=== PATIENT | male | born 1950 | race Caucasian/White ===

== ENCOUNTER 2016-12-24 04:45 | Inpatient (IN) | payer MEDICARE ==
[~2016-12-24] VITALS: Ht 177.8 cm; Wt 103.6 kg
[2016-12-24] VITALS (8 sets, daily range): BP systolic 111–175; BP diastolic 56–88
[~2016-12-24 04:45] MED LIST: ACTOS45 MG PO; ALTACE10 MG PO; CARVEDILOL25 MG PO; FERROUS SULFAT325 MG PO; GLIPIZIDE10 MG PO; HYDROCHLOROTHIA25 MG PO; IMDUR SA60 M1 PO; KCL PO; LASIX20 MG PO; LIPITOR20 MG PO; NIASPAN1000 MG PO; PERCOCET 325 MG1 TA2 PO; PLAVIX75 MG PO
[2016-12-24] MEDS ORDERED: PRINIVIL10 MG PO (05:04)
[2016-12-24 05:21] LABS: HEMATOCRIT 41.7 % (42.0-52.0); HEMOGLOBIN 13.8 g/dl (14.0-18.0); MEAN CELL VOLUME 95.4 fl (80.0-94.0); MEAN CORPUSCULAR HGB 31.6 pg (27.0-31.0); MEAN CORPUSCULAR HGB CONC 33.1 g/dl (33.0-37.0); PLATELET COUNT AUTOMATED 158 10*3/uL (130-400); RED BLOOD COUNT 4.37 10*6/uL (4.50-5.90); RED CELL DISTRI WIDTH 13.2 % (0-14.5)
[2016-12-24 05:37] LABS: ALBUMIN 3.5 gm/dl (3.1-4.5); ALKALINE PHOSPHATASE 161 U/L (45-117); BILIRUBIN, TOTAL 0.6 mg/dl (0.2-1.0); BUN 18 mg/dl (7-24); CARBON DIOXIDE 24 mmol/L (21-32); CHLORIDE 105 mmol/L (98-107); CKMB 0.9 ng/ml (0.5-3.6); EST GLOM FILT AFRICAN AMERICAN > 60 ml/min; GLUCOSE 105 mg/dL (65-99); POTASSIUM 4.3 mmol/L (3.5-5.1); SGOT/AST 10 IU/L (3-35); SGPT/ALT 15 U/L (12-78); SODIUM 140 mmol/L (136-145); TOTAL PROTEIN 6.9 gm/dL (6.4-8.2); TROPONIN I 0.016 ng/ml (<0.045)
[2016-12-24 05:41] LABS: BASOPHIL # 0.1 10*3/uL (0-0.1); BASOPHILS 1 % (0-1); EOSINOPHIL # 2.4 10*3/uL (0-0.4); EOSINOPHILS 27 % (1-4); LYMPHOCYTE # 0.6 10*3/uL (1.3-4.4); MONOCYTE # 0.5 10*3/uL (0.1-1.0); NEUTROPHIL # 5.4 10*3/uL (2.3-7.9); NEUTROPHILS 60 % (47-73); PLATELET SUFFICIENCY NORMAL (NORMAL); TOTAL CELLS COUNTED 100 #CELLS
[2016-12-24 06:44] LABS: ABG BASE EXCESS -0.8 mmol/L (-2.0-2.0); ABG HCO3 23.7 mmol/l (22-26); ABG TEMPERATURE 97.9 F (98.0-99.0); ARTERIAL BLOOD GAS PH 7.389 (7.35-7.45)
[2016-12-25] VITALS: BP 115/56
[2016-12-25 04:00] VITALS: BP 103/55
[2016-12-25 06:22] LABS: BASO % 0.1 % (0.0-1.0); EOS % 0.1 % (1.0-4.0); HEMATOCRIT 39.3 % (42.0-52.0); HEMOGLOBIN 13.2 g/dl (14.0-18.0); IG # 0.1 10*3/uL (0.0-0.1); LYMPH # 0.9 10*3/uL (1.3-4.4); LYMPH % 7.9 % (27.0-41.0); MEAN CELL VOLUME 95.6 fl (80.0-94.0); MEAN CORPUSCULAR HGB 32.1 pg (27.0-31.0); MEAN CORPUSCULAR HGB CONC 33.6 g/dl (33.0-37.0); MEAN PLATELET VOLUME 10.4 fl (9.6-12.3); MONO # 0.3 10*3/uL (0.1-1.0); MONO % 2.9 % (3.0-9.0); NEUT # 10.2 10*3/uL (2.3-7.9); NEUT % 88.3 % (47.0-73.0); PLATELET COUNT AUTOMATED 157 10*3/uL (130-400); RED BLOOD COUNT 4.11 10*6/uL (4.50-5.90); RED CELL DISTRI WIDTH 13.1 % (0-14.5); WHITE BLOOD COUNT 11.6 10*3/uL (4.8-10.8)
[2016-12-25 06:44] LABS: ALBUMIN 3.2 gm/dl (3.1-4.5); BILIRUBIN, TOTAL 0.4 mg/dl (0.2-1.0); FREE T4 1.23 ng/dl (0.76-1.46); MAGNESIUM 2.3 mg/dL (1.5-2.1); PHOSPHOROUS 4.2 mg/dL (2.5-4.9); POTASSIUM 4.6 mmol/L (3.5-5.1); TOTAL PROTEIN 6.7 gm/dL (6.4-8.2)
[2016-12-25 06:46] LABS: INTERNATIONAL NORM RATIO 1.1 (2.0-3.5)
[2016-12-25 06:49] LABS: THYROID STIM HORMONE (HS) 0.41 uIU/ml (0.358-4.75)
[2016-12-25 07:35] LABS: HEMOGLOBIN A1c 6.4 % (4.8-5.6)
[2016-12-25 07:58] LABS: VITAMIN D, 25-HYDROXY 43.9 ng/mL (30-100)
[2016-12-25 07:59] LABS: FOLIC ACID 4.73 ng/mL (>5.38)
[2016-12-25 08:00] VITALS: BP 136/61
[2016-12-25 12:00] VITALS: BP 128/63
[2016-12-25 16:00] VITALS: BP 147/65
[2016-12-25 20:00] VITALS: BP 146/68
[2016-12-26] VITALS: BP 130/62
[2016-12-26 06:18] LABS: BASO % 0.1 % (0.0-1.0); HEMATOCRIT 36.9 % (42.0-52.0); HEMOGLOBIN 12.5 g/dl (14.0-18.0); IG # 0.1 10*3/uL (0.0-0.1); LYMPH # 0.9 10*3/uL (1.3-4.4); LYMPH % 7.2 % (27.0-41.0); MEAN CELL VOLUME 94.6 fl (80.0-94.0); MEAN CORPUSCULAR HGB 32.1 pg (27.0-31.0); MEAN CORPUSCULAR HGB CONC 33.9 g/dl (33.0-37.0); MEAN PLATELET VOLUME 10.6 fl (9.6-12.3); MONO # 0.3 10*3/uL (0.1-1.0); MONO % 2.7 % (3.0-9.0); NEUT # 10.5 10*3/uL (2.3-7.9); NEUT % 89.2 % (47.0-73.0); PLATELET COUNT AUTOMATED 136 10*3/uL (130-400); RED CELL DISTRI WIDTH 13.2 % (0-14.5); WHITE BLOOD COUNT 11.7 10*3/uL (4.8-10.8)
[2016-12-26 06:49] LABS: ALKALINE PHOSPHATASE 131 U/L (45-117); BILIRUBIN, TOTAL 0.3 mg/dl (0.2-1.0); BUN 29 mg/dl (7-24); CARBON DIOXIDE 23 mmol/L (21-32); CHLORIDE 107 mmol/L (98-107); EST GLOM FILT AFRICAN AMERICAN > 60 ml/min; GLUCOSE 250 mg/dL (65-99); POTASSIUM 4.8 mmol/L (3.5-5.1); SGOT/AST 12 IU/L (3-35); SGPT/ALT 17 U/L (12-78); SODIUM 140 mmol/L (136-145); TOTAL PROTEIN 6.4 gm/dL (6.4-8.2)
[2016-12-26 08:00] VITALS: BP 178/76
[2016-12-26] MEDS ORDERED: PREDNISONE10 MG PO (09:05)
[2016-12-26] MEDS ORDERED: LEVAQUIN500 M2 PO (09:05)
[2016-12-26] MEDS ORDERED: DUONEB 3 MG/3 ML3 M1 INH (09:40)
== END 2016-12-26 11:05 | disposition home or self-care (01) | DRG 190 ==
LOC: ED 04:45 → EDHOLD 06:00 → 5E 06:00
PROVIDERS: Emergency Medicine Emergency Medical Services; Internal Medicine
DX: J44.0 Chronic obstructive pulmonary disease with (acute) lower respiratory infection (principal); J18.9 Pneumonia, unspecified organism; E44.0 Moderate protein-calorie malnutrition; J45.901 Unspecified asthma with (acute) exacerbation; J44.1 Chronic obstructive pulmonary disease with (acute) exacerbation; I25.10 Atherosclerotic heart disease of native coronary artery without angina pectoris; D64.9 Anemia, unspecified; I10 Essential (primary) hypertension; E78.5 Hyperlipidemia, unspecified; E11.40 Type 2 diabetes mellitus with diabetic neuropathy, unspecified; Z87.891 Personal history of nicotine dependence; Z82.3 Family history of stroke; Z82.49 Family history of ischemic heart disease and other diseases of the circulatory system; Z85.89 Personal history of malignant neoplasm of other organs and systems; Z72.89 Other problems related to lifestyle; Z79.899 Other long term (current) drug therapy

== ENCOUNTER 2017-01-11 15:27 | Inpatient (IN) | payer MEDICARE ==
[2017-01-11] VITALS (10 sets, daily range): BP systolic 112–140; BP diastolic 58–83
[~2017-01-11] VITALS: Ht 177.8 cm; Wt 102.1 kg
[~2017-01-11 15:27] MED LIST changes: +DUONEB 3 MG/3 ML3 M1 INH; -GLIPIZIDE10 MG PO; +GLIPIZIDE5 MG PO; +LEVAQUIN500 M2 PO; -LIPITOR20 MG PO; +LIPITOR40 MG PO; +PREDNISONE10 MG PO; +PRINIVIL5 M1 PO
[2017-01-11 18:37] LABS: BASO % 0.3 % (0.0-1.0); EOS # 0.5 10*3/uL (0.0-0.4); EOS % 5.4 % (1.0-4.0); HEMOGLOBIN 12.4 g/dl (14.0-18.0); LYMPH # 1.3 10*3/uL (1.3-4.4); LYMPH % 14.2 % (27.0-41.0); MEAN CELL VOLUME 96.9 fl (80.0-94.0); MEAN CORPUSCULAR HGB 31.6 pg (27.0-31.0); MEAN CORPUSCULAR HGB CONC 32.6 g/dl (33.0-37.0); MEAN PLATELET VOLUME 9.9 fl (9.6-12.3); MONO # 0.6 10*3/uL (0.1-1.0); MONO % 5.9 % (3.0-9.0); NEUT # 6.8 10*3/uL (2.3-7.9); NEUT % 73.8 % (47.0-73.0); PLATELET COUNT AUTOMATED 110 10*3/uL (130-400); RED BLOOD COUNT 3.92 10*6/uL (4.50-5.90); RED CELL DISTRI WIDTH 13.9 % (0-14.5); WHITE BLOOD COUNT 9.3 10*3/uL (4.8-10.8)
[2017-01-11 18:55] LABS: ALKALINE PHOSPHATASE 98 U/L (45-117); BILIRUBIN, TOTAL 0.7 mg/dl (0.2-1.0); BUN 17 mg/dl (7-24); CARBON DIOXIDE 26 mmol/L (21-32); CHLORIDE 103 mmol/L (98-107); CPK 66 U/L (39-308); EST GLOM FILT AFRICAN AMERICAN > 60 ml/min; GLUCOSE 125 mg/dL (65-99); POTASSIUM 5.2 mmol/L (3.5-5.1); SGOT/AST 15 IU/L (3-35); SGPT/ALT 23 U/L (12-78); SODIUM 138 mmol/L (136-145); TOTAL PROTEIN 5.7 gm/dL (6.4-8.2)
[2017-01-11 18:56] LABS: CKMB 1.7 ng/ml (0.5-3.6)
[2017-01-11 19:03] LABS: TROPONIN I 0.116 ng/ml (<0.045)
[2017-01-11] MEDS ORDERED: VITAMIN D31000 IU PO (22:00)
[2017-01-11 22:33] LABS: CKMB 1.4 ng/ml (0.5-3.6)
[2017-01-11 22:37] LABS: TROPONIN I 0.083 ng/ml (<0.045)
[2017-01-12] VITALS: BP 133/51
[2017-01-12 01:13] LABS: CKMB 1.3 ng/ml (0.5-3.6)
[2017-01-12 01:15] LABS: TROPONIN I 0.067 ng/ml (<0.045)
[2017-01-12 06:28] LABS: BASO % 0.7 % (0.0-1.0); EOS # 0.4 10*3/uL (0.0-0.4); EOS % 7.3 % (1.0-4.0); HEMOGLOBIN 11.5 g/dl (14.0-18.0); LYMPH % 17.5 % (27.0-41.0); MEAN CELL VOLUME 95.8 fl (80.0-94.0); MEAN CORPUSCULAR HGB 32.4 pg (27.0-31.0); MEAN CORPUSCULAR HGB CONC 33.8 g/dl (33.0-37.0); MEAN PLATELET VOLUME 10.5 fl (9.6-12.3); MONO # 0.5 10*3/uL (0.1-1.0); MONO % 8.7 % (3.0-9.0); NEUT # 3.8 10*3/uL (2.3-7.9); NEUT % 65.5 % (47.0-73.0); PLATELET COUNT AUTOMATED 97 10*3/uL (130-400); RED BLOOD COUNT 3.55 10*6/uL (4.50-5.90); RED CELL DISTRI WIDTH 13.7 % (0-14.5); WHITE BLOOD COUNT 5.7 10*3/uL (4.8-10.8)
[2017-01-12 07:05] LABS: BUN 16 mg/dl (7-24); CARBON DIOXIDE 26 mmol/L (21-32); CHLORIDE 107 mmol/L (98-107); EST GLOM FILT AFRICAN AMERICAN > 60 ml/min; GLUCOSE 98 mg/dL (65-99); PHOSPHOROUS 2.7 mg/dL (2.5-4.9); POTASSIUM 4.5 mmol/L (3.5-5.1); SODIUM 138 mmol/L (136-145)
[2017-01-12 07:08] LABS: INTERNATIONAL NORM RATIO 1.1 (2.0-3.5); PROTHROMBIN TIME 11.2 SECONDS (9.0-12.4)
[2017-01-12 08:00] VITALS: BP 114/64
[2017-01-12 12:00] VITALS: BP 126/67
[2017-01-12 16:00] VITALS: BP 117/65
[2017-01-12 20:00] VITALS: BP 118/73
[2017-01-13] VITALS: BP 96/55
[2017-01-13 06:28] LABS: ALBUMIN 2.5 gm/dl (3.1-4.5); BUN 20 mg/dl (7-24); CARBON DIOXIDE 26 mmol/L (21-32); CHLORIDE 106 mmol/L (98-107); GLUCOSE 83 mg/dL (65-99); MAGNESIUM 2.2 mg/dL (1.5-2.1); POTASSIUM 4.6 mmol/L (3.5-5.1); SODIUM 139 mmol/L (136-145)
[2017-01-13 06:31] LABS: ALKALINE PHOSPHATASE 86 U/L (45-117); BILIRUBIN, TOTAL 0.6 mg/dl (0.2-1.0); EST GLOM FILT AFRICAN AMERICAN > 60 ml/min; SGOT/AST 15 IU/L (3-35); SGPT/ALT 21 U/L (12-78); TOTAL PROTEIN 5.2 gm/dL (6.4-8.2)
[2017-01-13 06:37] LABS: PROTHROMBIN TIME 11.1 SECONDS (9.0-12.4)
[2017-01-13 08:00] VITALS: BP 106/56
[2017-01-13 12:00] VITALS: BP 136/69
[2017-01-13] MEDS ORDERED: ASPIRIN81 M1 PO (17:33)
== END 2017-01-13 17:14 | disposition home or self-care (01) | DRG 281 ==
LOC: ED 15:27 → 5E 20:51 → EDHOLD 20:51 → 5E 20:54
PROVIDERS: Family Medicine; Internal Medicine
PROC: 4A02XM4 Measurement of Cardiac Total Activity, External Approach (ICD-10-PCS; principal; 2017-01-13)
PROC: 3E073KZ Introduction of Other Diagnostic Substance into Coronary Artery, Percutaneous Approach (ICD-10-PCS; 2017-01-13)
DX: I21.4 Non-ST elevation (NSTEMI) myocardial infarction (principal); E44.0 Moderate protein-calorie malnutrition; E11.40 Type 2 diabetes mellitus with diabetic neuropathy, unspecified; E11.65 Type 2 diabetes mellitus with hyperglycemia; E87.5 Hyperkalemia; I25.10 Atherosclerotic heart disease of native coronary artery without angina pectoris; Z79.4 Long term (current) use of insulin; E78.5 Hyperlipidemia, unspecified; I10 Essential (primary) hypertension; Z87.891 Personal history of nicotine dependence; Z83.3 Family history of diabetes mellitus; Z82.3 Family history of stroke; J44.9 Chronic obstructive pulmonary disease, unspecified; Z85.828 Personal history of other malignant neoplasm of skin; R00.1 Bradycardia, unspecified; R00.0 Tachycardia, unspecified; D53.9 Nutritional anemia, unspecified; E66.9 Obesity, unspecified; Z68.32 Body mass index [BMI] 32.0-32.9, adult; I25.2 Old myocardial infarction; I99.8 Other disorder of circulatory system; I65.22 Occlusion and stenosis of left carotid artery; Z82.49 Family history of ischemic heart disease and other diseases of the circulatory system; Z79.84 Long term (current) use of oral hypoglycemic drugs; Z79.899 Other long term (current) drug therapy

== ENCOUNTER → 2019-03-07 | Outpatient (CLI) | payer OTHER ==
[~2019-03-07] MED LIST changes: +ASPIRIN81 M1 PO; +VITAMIN D31000 IU PO
[2019-03-07 12:35] LABS: BUN 23 mg/dl (7-24); CHLORIDE 108 mmol/L (98-107); CREATININE 1.29 mg/dL (0.70-1.30); POTASSIUM 5.1 mmol/L (3.5-5.1); SODIUM 138 mmol/L (136-145)
== END | disposition home or self-care (01) ==
LOC: LAB 11:58
PROVIDERS: Nurse Practitioner Family
DX: E87.5 Hyperkalemia (principal)

== ENCOUNTER 2020-08-11 12:35 | Emergency (ER) | payer MEDICARE ==
[~2020-08-11] VITALS: Wt 100.7 kg
== END 2020-08-11 15:39 | disposition home or self-care (01) ==
LOC: ED 12:35
DX: S90.32XA Contusion of left foot, initial encounter (principal); E11.9 Type 2 diabetes mellitus without complications; I10 Essential (primary) hypertension; I25.10 Atherosclerotic heart disease of native coronary artery without angina pectoris; Z79.899 Other long term (current) drug therapy; Z79.82 Long term (current) use of aspirin; Z98.890 Other specified postprocedural states; W08.XXXA Fall from other furniture, initial encounter; Y93.89 Activity, other specified; Y92.89 Other specified places as the place of occurrence of the external cause; Y99.8 Other external cause status